=== PATIENT | male | born 1980 | race Caucasian/White ===

== ENCOUNTER → 2018-02-04 | Outpatient (CLI) | payer BC | LOC: RAD 15:31 | DX: M54.2 Cervicalgia (principal) ==

== ENCOUNTER 2018-04-17 09:29 | Emergency (ER) | payer BC ==
[~2018-04-17] VITALS: Ht 195.6 cm; Wt 113.6 kg
[2018-04-17] MEDS ORDERED: ZESTORETIC 20-1 EACH PO (10:00)
[2018-04-17] MEDS ORDERED: CYMBALTA60 M1 PO (10:00)
[2018-04-17 10:24] LABS: EOS # 0.2 (0.04-0.40); EOS % 2.2 % (0.0-4.0); HEMATOCRIT 44.2 % (42.0-52.0); HEMOGLOBIN 15.1 g/dL (13.5-18.0); LYMPH# 2.4 (1.50-4.00); MEAN CELL VOLUME 90 fl (78-100); MEAN CORPUSCULAR HEMOGLOBIN 31 pg (27-31); MEAN CORPUSCULAR HGB CONC 34 g/dL (33-37); MEAN PLATELET VOLUME 8.7 fl (7.4-10.4); MONO # 0.5 (0.20-0.80); NEU # 3.7 (1.40-6.50); PLATELET COUNT 323 K/mm3 (130-400); RED CELL DISTRIBUTION WIDTH 11.8 % (11.5-14.5); WHITE BLOOD COUNT 6.7 K/mm3 (4.8-10.8)
[2018-04-17 10:37] LABS: ALBUMIN 4.7 g/dL (3.5-5.0); ALCOHOL IN-HOUSE 190 mg/dL; ALT/SGPT 28 U/L (21-72); AST-SGOT 31 U/L (17-59); CALCIUM 9.1 mg/dL (8.4-10.2); CARBON DIOXIDE 29 mmol/L (22-30); GLUCOSE 95 mg/dL (75-110); POTASSIUM 3.7 mmol/L (3.6-5.0); SODIUM 142 mmol/L (137-145); TOTAL BILIRUBIN 0.3 mg/dL (0.2-1.3)
[2018-04-17] MEDS ORDERED: LISINOPRIL AND1 TA1 PO (10:39)
[2018-04-17 10:40] LABS: ACETAMINOPHEN < 4 ug/mL (10-30)
[2018-04-17 13:46] LABS: URINE APPEARANCE CLEAR; URINE COLOR YELLOW
[2018-04-17 13:47] LABS: URINE BILIRUBIN NEGATIVE (NEGATIVE); URINE BLOOD NEGATIVE (NEGATIVE); URINE GLUCOSE NEGATIVE (NEGATIVE); URINE KETONE 1+ (NEGATIVE); URINE LEUKOCYTE ESTERASE NEGATIVE (NEGATIVE); URINE NITRATE NEGATIVE (NEGATIVE); URINE PROTEIN(semi-quant) NEGATIVE (NEGATIVE); URINE UROBILINOGEN NORMAL (NORMAL); URINE WBC 0-1 /hpf (0-3)
[2018-04-17] MEDS ORDERED: PHENERGAN 25 TA25 MG PO (13:53)
[2018-04-17] MEDS ORDERED: CYMBALTA30 M1 PO (13:53)
[2018-04-17 14:17] VITALS: BP 128/83
== END 2018-04-17 14:17 | disposition home or self-care (01) ==
LOC: ED 09:29
PROVIDERS: Nurse Practitioner Primary Care
DX: F10.129 Alcohol abuse with intoxication, unspecified (principal); T43.215A Adverse effect of selective serotonin and norepinephrine reuptake inhibitors, initial encounter; F32.89 Other specified depressive episodes
CPT/HCPCS: J2405; J7030